=== PATIENT | male | born 1995 | race Caucasian/White ===

== ENCOUNTER 2024-09-09 20:20 | Emergency (ER) | payer MEDICAID ==
[~2024-09-09] VITALS: Ht 177.8 cm; Wt 71.8 kg
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
[2024-09-09 21:23] VITALS: BP 149/69; PULSE 82; RESP 16; TEMP 98.6; O2SAT 99
== END 2024-09-09 21:24 ==
LOC: ER 20:21
DX: R07.89 Other chest pain (principal); M25.512 Pain in left shoulder; Z00.8 Encounter for other general examination; V47.5XXA Car driver injured in collision with fixed or stationary object in traffic accident, initial encounter; Y93.89 Activity, other specified; Y92.89 Other specified places as the place of occurrence of the external cause; Y99.8 Other external cause status
CPT/HCPCS: 70450; 71045; 72125; 99284